=== PATIENT | male | born 1940 | race Caucasian/White ===

== ENCOUNTER → 2016-09-09 | Outpatient (CLI) | payer OTHER ==
--- NOTE | 2016-09-09 15:57 | DX ---
Right knee, 3 views History: Chronic right knee pain. Findings: No acute fracture or dislocation identified. Large lateral femoral condyle and tibial plate au osteophytes with severe lateral tibiofemoral joint space narrowing to 1 mm and associated subchond ral sclerosis. Chondrocalcinosis in the medial tibiofemoral region with small medial femoral condyle and tibial plateau osteophytes. Circumferential patellar osteophytes with mild medial patellofemoral joint space narrowing. Impression: 1. Severe osteoarthritis right knee, especially the lateral tibiofemoral compartment. 2. Chondrocalcinosis.
--- NOTE | 2016-09-09 16:30 | DX ---
Left foot series 3 views 1403 hours. History: Followup fracture 3rd metatarsal. Findings: Comparison to August 20, 2016. There is callus formation and periosteal thickening associated with the oblique fracture distal shaft left 3rd metatarsal without evidence of angulation or displacement since the prior study. No additio nal fractures are seen. Joint spaces appear to be normal. There is hypertrophic marginal osteophyte b etween the base of the first and second metatarsals. Impression: 1. Healing fracture distal shaft left 3rd metatarsal.
== END ==
LOC: BRMIMAGING 13:54
PROVIDERS: ATTEND Family Medicine
DX: S92.332D Displaced fracture of third metatarsal bone, left foot, subsequent encounter for fracture with routine healing (principal); M17.11 Unilateral primary osteoarthritis, right knee; M11.261 Other chondrocalcinosis, right knee
CPT/HCPCS: 73562-PO; 73630-PO

== ENCOUNTER → 2016-10-08 | Outpatient (CLI) | payer OTHER ==
--- NOTE | 2016-10-08 10:31 | DX ---
Left Foot, Three Views Indication: Follow up third metatarsal fracture. Technique: AP, oblique, and lateral views. Comparison: August 14, 2016 and September 09, 2016. Findings: Progressive callus deposition along the medial and lateral margin of the fracture. A faint radiolucent fracture plane persists. No other fractures. Smooth dystrophic ossification along the lat eral base of the first metatarsal is unchanged. No widening of the Lisfranc interval. Impression: Appropriate healing of subacute distal third metatarsal fracture.
== END ==
LOC: BRMIMAGING 09:33
PROVIDERS: ATTEND Family Medicine
DX: S92.332D Displaced fracture of third metatarsal bone, left foot, subsequent encounter for fracture with routine healing (principal)
CPT/HCPCS: 73630-PO